=== PATIENT | female | born 1960 | race Caucasian/White ===

== ENCOUNTER 2021-02-07 19:29 | Emergency (ER) | payer BC, OTHER ==
[2021-02-07 19:57] VITALS: BP 135/87; PULSE 72; TEMP 98.7; BMI 25.6
== END 2021-02-07 20:33 | disposition home or self-care (01) ==
LOC: JER 19:29
DX: U07.1 COVID-19 (principal)
CPT/HCPCS: 99283-25; C9803; U0003; U0005

== ENCOUNTER 2023-05-17 08:57 | Emergency (ER) | payer BC ==
[2023-05-17 09:23] VITALS: BP 137/93; PULSE 76; RESP 18; TEMP 97.8; BMI 25.2
== END 2023-05-17 10:39 | disposition home or self-care (01) ==
LOC: JERFT 08:57
DX: R05.9 Cough, unspecified (principal); J02.9 Acute pharyngitis, unspecified; R09.81 Nasal congestion; J06.9 Acute upper respiratory infection, unspecified; U07.1 COVID-19
CPT/HCPCS: 0241U-QW; 87651; 99283-25